=== PATIENT | female | born 1925 | race Caucasian/White ===

== ENCOUNTER 2016-04-28 19:07 | Inpatient (IN) | payer MEDICARE, OTHER ==
[~2016-04-28] VITALS: Ht 154.9 cm; Wt 54.4 kg
[2016-04-28 19:11] VITALS: BP 126/71
--- NOTE | 2016-04-28 19:53 | History & Physical ---
History and Physical History & Physicial Pt was seen and examined. full note will follow MARIEL PUGA Apr 28, 2016 19:53
[2016-04-28 20:19] LABS: BASOPHILS % (AUTO) 0.8 % (0.0-2.0); EOSINOPHILS % (AUTO) 0.3 % (0.0-3.0); LYMPHOCYTES % (AUTO) 8.7 % (20.0-45.0); MEAN CORPUSCULAR HGB CONC 32.1 G/DL (32.0-36.0); MEAN CORPUSCULAR VOLUME 100 FL (80-99); MEAN PLATELET VOLUME 5.1 FL (6.5-10.1); MONOCYTES % (AUTO) 8.7 % (1.0-10.0); NEUTROPHILS % (AUTO) 81.5 % (45.0-75.0); PLATELET COUNT 324 K/UL (150-450); RED BLOOD COUNT 3.57 M/UL (4.20-5.40); WHITE BLOOD COUNT 17.2 K/UL (4.8-10.8)
[2016-04-28 20:34] LABS: TROPONIN I < 0.30 ng/mL (<=0.30)
[2016-04-28 20:39] LABS: ALANINE AMINOTRANSFERASE 14 U/L (3-33); ALBUMIN/GLOBULIN RATIO 0.8 (1.0-2.7); ANION GAP 16 (5-15); ASPARTATE AMINO TRANSFERASE 50 U/L (5-40); CARBON DIOXIDE 23 mEQ/L (20-30); CHLORIDE 104 mEQ/L (98-107); CREATININE 1.2 mg/dL (0.5-0.9); HEMOLYSIS 226; POTASSIUM 5.7 mEQ/L (3.4-4.9); SODIUM 143 mEQ/L (135-145); TOTAL PROTEIN 5.6 g/dL (6.6-8.7)
[2016-04-28 20:46] LABS: CKMB 6.2 ng/mL (< 3.8)
[2016-04-28 20:51] VITALS: BP 151/62
[2016-04-28 21:14] LABS: APPEARANCE,URINE CLOUDY; KETONES,URINE NEGATIVE (NEGATIVE); LEUKOCYTE ESTERASE ,URINE 3+ (NEGATIVE); NITRITE,URINE POSITIVE (NEGATIVE); PH,URINE 8 (4.5-8.0); PROTEIN,URINE 3+ (NEGATIVE); UROBILINOGEN,URINE 1 MG/DL (0.0-1.0)
[2016-04-28] MEDS ORDERED: Sodium Polystyrene Sulfonate 15gm Powder ORAL ONE (21:15)
[2016-04-28] MEDS ORDERED: cefTRIAXone 1 GM in NS 55 ML IVPB ONE (21:30)
[2016-04-28 21:33] LABS: BACTERIA,URINE MANY /HPF; WBC,URINE TNTC /HPF (0 - 2)
--- NOTE | 2016-04-28 21:52 | Emergency Room Report ---
History of Present Illness General Chief Complaint: Chest Pain Source: Medical Record, EMS Present Illness HPI 89-year-old female presents to ED for evaluation. Per EMS patient has been tachycardic at her convalescent home today. Patient has history of A. fib. Patient denies any fevers or chills. Denies chest pain or shortness of breath. No aggravating relieving factors. Denies any other associated symptoms Allergies: Coded Allergies: No Known Allergies (Verified , 01/04/08) Patient History Past Medical History: HTN Past Surgical History: none Pertinent Family History: none Social History: Denies: alcohol use, drug use, smoking Now: No Immunizations: UTD Reviewed Nursing Documentation: PMH: Agreed, PSxH: Agreed Nursing Documentation-PMH Hx Hypertension: Yes Review of Systems All Other Systems: negative except mentioned in HPI Physical Exam Vital Signs Date Time Temp Pulse Resp B/P Pulse Ox O2 Delivery O2 Flow Rate FiO2 04/28/16 19:04 97.0 75 18 126/71 96 Room Air Sp02 EP Interpretation: reviewed, normal General Appearance: GCS 15, non-toxic, lethargic, thin Head: normocephalic, atraumatic Eyes: bilateral eye PERRL, bilateral eye normal inspection ENT: hearing grossly normal, normal pharynx, no angioedema, normal voice Neck: full range of motion, supple/symm/no masses Respiratory: chest non-tender, lungs clear, normal breath sounds, speaking full sentences Cardiovascular #1: no edema, tachycardia Cardiovascular #2: 2+ carotid (R), 2+ carotid (L), 2+ radial (R), 2+ radial (L) , 2+ dorsalis pedis (R), 2+ dorsalis pedis (L) Gastrointestinal: normal bowel sounds, non tender, soft, non-distended, no guarding, no rebound Rectal: deferred Genitourinary: normal inspection, no CVA tenderness Musculoskeletal: back normal, gait/station normal, normal range of motion, non- tender Neurologic: alert, oriented x3, responsive, motor strength/tone normal, sensory intact, speech normal Psychiatric: judgement/insight normal, memory normal, mood/affect normal, no suicidal/homicidal ideation Reflexes: 3+ bicep (R), 3+ bicep (L), 3+ tricep (R), 3+ tricep (L), 3+ knee (R) , 3+ knee (L) Skin: normal color, no rash, warm/dry, well hydrated Lymphatic: no adenopathy Medical Decision Making Diagnostic Impression: Primary Impression: CHF exacerbation Qualified Codes: I50.9 - Heart failure, unspecified Additional Impressions: Atrial fibrillation Qualified Codes: I48.91 - Unspecified atrial fibrillation UTI (urinary tract infection) Qualified Codes: N39.0 - Urinary tract infection, site not specified ARF (acute renal failure) Qualified Codes: N17.9 - Acute kidney failure, unspecified Hyperkalemia, diminished renal excretion ER Course Hospital Course 89-year-old female presents to ED with runs of atrial fibrillation, not controlled at convalescent home Differential diagnoses include: DC/unstable angina, contusion, muscle strain, PTX, rib fracture Clinical course Patient placed on stretcher. on teletypesetter monitor. After initial history and physical I ordered labs, EKG, chest x-ray, IVFs labs reviewed- noted leukocytosis, hemoglobin/hematocrit stable, creatinine elevated, K 5.2, troponins negative, BNP greater than 9000, UA + bacteria EKG - no ischemic changes Chest x-ray- cardiomegaly kayexalate given. Antibiotics given. Case discussed with Dr. Abel and he agreed to accept the patient to his service for further care and support I. I feel this is a highly complex case requiring extensive working including EKG/Rhythm strip, Xray/CT/US, Blood/urine lab work, repeat exams while in ED, and administration of strong opiates/narcotics for pain control, admission to hospital or close patient follow up. Diagnosis - CHF exacerbation, renal failuere, atria lfibrillation, ARF, hyperkalemia admitted to telemetry in serious condition Labs Test 04/28/16 19:36 04/28/16 20:48 White Blood Count 17.2 K/UL (4.8-10.8) Red Blood Count 3.57 M/UL (4.20-5.40) Hemoglobin 11.4 G/DL (12.0-16.0) Hematocrit 35.6 % (37.0-47.0) Mean Corpuscular Volume 100 FL (80-99) Mean Corpuscular Hemoglobin 32.0 PG (27.0-31.0) Mean Corpuscular Hemoglobin Concent 32.1 G/DL (32.0-36.0) Red Cell Distribution Width 13.0 % (11.6-14.8) Platelet Count 324 K/UL (150-450) Mean Platelet Volume 5.1 FL (6.5-10.1) Neutrophils (%) (Auto) 81.5 % (45.0-75.0) Lymphocytes (%) (Auto) 8.7 % (20.0-45.0) Monocytes (%) (Auto) 8.7 % (1.0-10.0) Eosinophils (%) (Auto) 0.3 % (0.0-3.0) Basophils (%) (Auto) 0.8 % (0.0-2.0) Sodium Level 143 mEQ/L (135-145) Potassium Level 5.7 mEQ/L (3.4-4.9) Chloride Level 104 mEQ/L (98-107) Carbon Dioxide Level 23 mEQ/L (20-30) Anion Gap 16 (5-15) Blood Urea Nitrogen 40 mg/dL (7-23) Creatinine 1.2 mg/dL (0.5-0.9) Estimat Glomerular Filtration Rate mL/min (>60) Glucose Level 115 mg/dL (74-106) Lactic Acid Level 1.40 mmol/L (0.66-2.22) Calcium Level 8.0 mg/dL (8.6-10.2) Total Bilirubin 0.2 mg/dL (0.0-1.2) Aspartate Amino Transf (AST/SGOT) 50 U/L (5-40) Alanine Aminotransferase (ALT/SGPT) 14 U/L (3-33) Alkaline Phosphatase 76 U/L (35-104) Total Creatine Kinase 65 U/L (26-140) Creatine Kinase MB 6.2 ng/mL (< 3.8) Creatine Kinase MB Relative Index 9.5 Troponin I < 0.30 ng/mL (<=0.30) Pro-B-Type Natriuretic Peptide 9162 pg/mL (0-450) Total Protein 5.6 g/dL (6.6-8.7) Albumin 2.5 g/dL (3.5-5.2) Globulin 3.1 g/dL Albumin/Globulin Ratio 0.8 (1.0-2.7) Urine Color Yellow Urine Appearance Cloudy Urine pH 8 (4.5-8.0) Urine Specific [place] 1.010 (1.005-1.035) Urine Protein 3+ (NEGATIVE) Urine Glucose (UA) Negative (NEGATIVE) Urine Ketones Negative (NEGATIVE) Urine Occult Blood 3+ (NEGATIVE) Urine Nitrite Positive (NEGATIVE) Urine Bilirubin Negative (NEGATIVE) Urine Urobilinogen 1 MG/DL (0.0-1.0) Urine Leukocyte Esterase 3+ (NEGATIVE) Urine RBC 2-4 /HPF (0 - 2) Urine WBC Tntc /HPF (0 - 2) Urine Squamous Epithelial Cells None /LPF (NONE/OCC) Urine Bacteria Many /HPF (NONE) EKG Diagnostic Results Rate: normal Rhythm: NSR ST Segments: no acute changes ASA given to the pt in ED: No Rhythm Strip Diag. Results EP Interpretation: yes Rhythm: NSR, no PVC's, no ectopy Chest X-Ray Diagnostic Results EP Interpretation: Yes Findings: no consolidation, no effusion, no pneumothorax, no acute cardiopulmonary disease, other - cardiomegaly Number of Views: 1 Last Vital Signs Date Time Temp Pulse Resp B/P Pulse Ox O2 Delivery O2 Flow Rate FiO2 04/28/16 20:51 100.0 82 18 151/62 96 Room Air Status: improved Disposition: ADMITTED INPATIENT Condition: Serious Referrals: PÉREZ ZAVALA (PCP) KAY WALKER M.D. Apr 28, 2016 21:52
[2016-04-28 22:14] VITALS: BP 142/72
[2016-04-28] MEDS ORDERED: FOLIC ACID1 MG ORAL (23:36)
[2016-04-28] MEDS ORDERED: ATORVASTATIN CA20 MG ORAL (23:36)
[2016-04-28] MEDS ORDERED: AMIODARONE HCL400 M1 ORAL (23:36)
[2016-04-28] MEDS ORDERED: HYDRALAZINE HCL10 MG ORAL (23:36)
[2016-04-28] MEDS ORDERED: MELATONIN1 M1 SL (23:36)
[2016-04-28] MEDS ORDERED: ARICEPT10 MG ORAL (23:36)
[2016-04-28] MEDS ORDERED: DEPAKOTE250 MG PO (23:36)
[2016-04-28] MEDS ORDERED: CALCIUM500 M3 PO (23:36)
[2016-04-28] MEDS ORDERED: BISACODYL5 MG ORAL (23:36)
[2016-04-28] MEDS ORDERED: ATIVAN0.5 MG ORAL (23:36)
[2016-04-28] MEDS ORDERED: INDERAL LA60 MG ORAL (23:36)
[2016-04-28] MEDS ORDERED: PRIMIDONE50 MG PO (23:36)
[2016-04-29] VITALS (7 sets, daily range): BP systolic 96–134; BP diastolic 54–80
[2016-04-29] MEDS ORDERED: Milk of Magnesia 30ml Ud ORAL PRN (00:45)
[2016-04-29] MEDS ORDERED: LORazepam 0.5mg tab ORAL PRN (00:45)
[2016-04-29] MEDS ORDERED: DEPAKOTE125 MG PO (01:27)
[2016-04-29] MEDS ORDERED: COLACE100 MG ORAL (01:27)
[2016-04-29] MEDS ORDERED: MELATONIN1 MG PO (01:27)
[2016-04-29] MEDS ORDERED: AMIODARONE HCL100 MG ORAL (01:44)
[2016-04-29] MEDS ORDERED: PROPRANOLOL HCL10 MG ORAL (01:47)
[2016-04-29] MEDS ORDERED: HYDRALAZINE HCL25 M1 ORAL (01:47)
[2016-04-29] MEDS ORDERED: DIOVAN160 MG ORAL (01:50)
[2016-04-29] MEDS ORDERED: PRIMIDONE50 MG PO (01:50)
[2016-04-29] MEDS ORDERED: ATIVAN0.5 MG ORAL (01:50)
[2016-04-29] MEDS ORDERED: FLEET ENEMA133 M1 RC (01:54)
[2016-04-29] MEDS ORDERED: NITROSTAT0.4 M2 SL (01:54)
[2016-04-29] MEDS ORDERED: DULCOLAX10 MG RC (01:54)
[2016-04-29] MEDS: HydrALAZINE 25mg tab ORAL SCH ×3 (06:00→22:00)
[2016-04-29 08:19] LABS: TROPONIN I < 0.30 ng/mL (<=0.30)
[2016-04-29 08:31] LABS: ANION GAP 13 (5-15); CARBON DIOXIDE 24 mEQ/L (20-30); CHLORIDE 107 mEQ/L (98-107); CHOLESTEROL 95 mg/dL (< 200); CHOLESTEROL/HDL RATIO 2.3 (3.3-4.4); HEMOLYSIS 6; LDL CHOLESTEROL (CALC.) 43 mg/dL (60-99); POTASSIUM 4.4 mEQ/L (3.4-4.9); SODIUM 144 mEQ/L (135-145)
--- NOTE | 2016-04-29 09:57 | Wound Care Consultation ---
Wound Assessment Wound Assessment #1: Wound Number: #1 Wound Present on Admission: Yes New Wound: No Status Change of Wound: No Wound Location Body Site Modif: mid Wound Location Body Site: sacral Wound Type: pressure ulcer Mary Test: Does not Mary Pressure Ulcer Stage: IV/unstageable Wound Thickness: Full Thickness Wound Length: 2.5 Wound Width: 1.5 Wound Depth: utd Percent of Wound Holt/Red: 30 Percent of Wound Bed Yellow/Wh: 70 Wound Drainage Description: Serosanguineous Wound Drainage Amount: Scant Wound Drainage Odor: None/Absent Tissue Surrounding Wound: Macerated Wound General Appearance: Reddened, Necrotic - 70 % yellow slough present. Wound Assessment #2: Wound Number: #2 Wound Present on Admission: Yes New Wound: No Status Change of Wound: No Wound Location Body Site Modif: left, right, lower Wound Location Body Site: leg Wound Type: other - scattered ecchymosis. Mary Test: Does not Mary Percent of Wound Holt/Red: 50 Percent of Wound Purple/Maroon: 50 Wound Drainage Amount: None Wound Drainage Odor: None/Absent Tissue Surrounding Wound: Intact Wound General Appearance: Open to air Wound Comment #1 Sacral pressure ulcer stage IV/Unstageable. #2 Left and right lower extremities scattered ecchymosis. Recommendation -Apply low air loss overlay mattress for wound and skin management. -Local wound care as ordered. -Turn and reposition. -Offload affected sacral site. -Offload both heels. -Apply heel protectors. -Avoid shear and friction. -Optimize nutrition. -Keep clean and dry. -Assess and follow up with MD for any changes of condition. SUKI PEGUERO Apr 29, 2016 09:57
[2016-04-29] MEDS: Irbesartan 150mg tablet ORAL SCH ×2 (10:03→21:00)
[2016-04-29] MEDS: Amiodarone 200mg tab ORAL SCH (10:03)
[2016-04-29] MEDS: Docusate 100mg cap ORAL SCH ×2 (10:03→18:00)
[2016-04-29] MEDS: Propranolol 10mg tab ORAL SCH ×2 (10:04→21:00)
[2016-04-29] MEDS: Calcium Carbonate 500mg w/Vit D 200iu tab PO SCH (10:04)
--- NOTE | 2016-04-29 10:53 | General Progress Note ---
Assessment/Plan Problem List: (1) ARF (acute renal failure) ICD Codes: N17.9 - Acute kidney failure, unspecified SNOMED: 55005088 Qualifiers: Qualified Codes: N17.9 - Acute kidney failure, unspecified (2) Hyperkalemia, diminished renal excretion ICD Codes: E87.5 - Hyperkalemia SNOMED: 41746089 (3) UTI (urinary tract infection) ICD Codes: N39.0 - Urinary tract infection, site not specified SNOMED: 30786772 Qualifiers: Qualified Codes: N39.0 - Urinary tract infection, site not specified (4) Toxic metabolic encephalopathy ICD Codes: G92 - Toxic encephalopathy SNOMED: 519716826 (5) HTN (hypertension) ICD Codes: I10 - Essential (primary) hypertension SNOMED: 90248315 Assessment/Plan IVF IV ABXS Discussed with speech NPO for now follow labs Discussed with RN Subjective Allergies: Coded Allergies: No Known Allergies (Verified , 01/04/08) Subjective lethargic Objective Last 24 Hour Vital Signs Date Time Temp Pulse Resp B/P Pulse Ox O2 Delivery O2 Flow Rate FiO2 04/29/16 10:04 85 102/61 04/29/16 10:03 102/61 04/29/16 08:23 97.3 85 20 102/61 97 Room Air 04/29/16 06:00 105/60 04/29/16 04:20 110/75 04/29/16 04:05 98.1 79 18 96/54 93 Room Air 04/29/16 04:00 87 04/29/16 00:00 83 04/29/16 00:00 99.0 83 18 130/80 98 Room Air 04/28/16 22:45 99.5 78 18 142/72 98 Room Air 04/28/16 22:14 99.5 78 18 142/72 98 Room Air 04/28/16 20:51 100.0 82 18 151/62 96 Room Air 04/28/16 19:11 100.2 140 18 126/71 96 Room Air 04/28/16 19:11 75 18 Room Air 04/28/16 19:04 97.0 75 18 126/71 96 Room Air Intake and Output 04/28/16 04/29/16 19:00 07:00 Intake Total 1055 ml Output Total 800 ml Balance 255 ml Intake IV Total 1055 ml Output Urine Total 800 ml Laboratory Tests 04/28/16 19:36: White Blood Count 17.2H, Red Blood Count 3.57L, Hemoglobin 11.4L, Hematocrit 35.6L, Mean Corpuscular Volume 100H, Mean Corpuscular Hemoglobin 32.0H, Mean Corpuscular Hemoglobin Concent 32.1, Red Cell Distribution Width 13.0, Platelet Count 324, Mean Platelet Volume 5.1L, Neutrophils (%) (Auto) 81.5H, Lymphocytes (%) (Auto) 8.7L, Monocytes (%) (Auto) 8.7, Eosinophils (%) (Auto) 0.3, Basophils (%) (Auto) 0.8, Sodium Level 143, Potassium Level 5.7H, Chloride Level 104, Carbon Dioxide Level 23, Anion Gap 16H, Blood Urea Nitrogen 40H, Creatinine 1.2H, Estimat Glomerular Filtration Rate , Glucose Level 115H, Lactic Acid Level 1.40, Calcium Level 8.0L, Total Bilirubin 0.2, Aspartate Amino Transf (AST/SGOT) 50H, Alanine Aminotransferase (ALT/SGPT) 14, Alkaline Phosphatase 76, Total Creatine Kinase 65, Creatine Kinase MB 6.2H, Creatine Kinase MB Relative Index 9.5, Troponin I < 0.30, Pro-B-Type Natriuretic Peptide 9162H, Total Protein 5.6L, Albumin 2.5L, Globulin 3.1, Albumin/Globulin Ratio 0.8L 04/28/16 20:48: Urine Color Yellow, Urine Appearance Cloudy, Urine pH 8, Urine Specific [place] 1.010, Urine Protein 3+H, Urine Glucose (UA) Negative, Urine Ketones Negative, Urine Occult Blood 3+H, Urine Nitrite PositiveH, Urine Bilirubin Negative, Urine Urobilinogen 1H, Urine Leukocyte Esterase 3+H, Urine RBC 2-4H, Urine WBC TntcH, Urine Squamous Epithelial Cells None, Urine Bacteria ManyH 04/29/16 07:25: Sodium Level 144, Potassium Level 4.4, Chloride Level 107, Carbon Dioxide Level 24, Anion Gap 13, Blood Urea Nitrogen 37H, Creatinine 1.0H, Estimat Glomerular Filtration Rate , Glucose Level 93, Calcium Level 8.0L, Troponin I < 0.30, Triglycerides Level 52, Cholesterol Level 95, LDL Cholesterol 43L, HDL Cholesterol 42, Cholesterol/HDL Ratio 2.3L Height (Feet): 5 Height (Inches): 1.00 Weight (Pounds): 120 Cardiovascular: normal rate Respiratory/Chest: lungs clear Edema: no edema noted Generalized MARIEL PUGA Apr 29, 2016 10:53
[2016-04-29] MEDS ORDERED: Pneumococcal Vaccine 25mcg/0.5ml IM ONE (11:30)
[2016-04-29] MEDS: Potassium Chloride 10 MEQ in D5 1/2NS 1,000 ML IV SCH (11:54)
--- NOTE | 2016-04-29 12:55 | Diagnostic Imaging Report ---
Indications: Chest pain Technique: Portable AP chest Findings: Comparison: None Lungs normally, symmetrically inflated. Small calcified nodules left upper lobe, left hilum. Right lung clear. Heart size, pulmonary vasculature within normal limits. Vascular calcified and elongated. No pleural abnormalities. Bones diffusely demineralized. Small caliber catheter overlies soft tissues of right arm. IMPRESSION: No evidence of acute cardiopulmonary disease Calcified old granulomatous disease Aortosclerosis and probable chronic hypertensive change Osteopenia Nonspecific right arm catheter, may be intravenous
--- NOTE | 2016-04-29 15:18 | History and Physical Report ---
DATE OF ADMISSION: 04/28/2016 CHIEF COMPLAINT: The patient was thought to have new onset atrial fibrillation and chest pain. HISTORY OF PRESENT ILLNESS: This is a 89-year-old [place] female with a history of dementia, who is nonverbal at baseline. She was found to be somewhat tachycardic, but suspicious of atrial fibrillation and apparently there was also some chest pain. The patient was sent to the emergency room. She was found to have elevated WBC at 17,200 and urinalysis positive for urinary tract infection. Also hyperkalemia with potassium 5.7, renal failure with a BUN of 40 and creatinine 1.2, and for all those reasons, the patient was admitted. PAST MEDICAL HISTORY: The patient has history of Parkinson disease, history of hypertension and history of dementia. MEDICATIONS: Reviewed in the MR. ALLERGIES: No known drug allergies. SOCIAL HISTORY: No history of smoking or alcohol abuse. The patient is at [facility]. REVIEW OF SYSTEMS: Unobtainable. PHYSICAL EXAMINATION: GENERAL: The patient is an elderly female. She opens her eyes when she called, but she does not talk. She has some tremors. VITAL SIGNS: Blood pressure 102/61, pulse 85, temperature 97.3 degrees, and respiratory rate is 20. HEENT: [place] conjunctivae. Anicteric sclerae. NECK: Supple. LUNGS: Clear to auscultation. HEART: S1 and S2 without murmurs or rubs. ABDOMEN: Soft and nontender. EXTREMITIES: No cyanosis or edema. LABORATORY AND DIAGNOSTIC DATA: The chemistry panel shows serum sodium of 143, potassium 5.7, chloride 104, CO2 23, BUN is 14, creatinine 1.2, and blood sugar is 115. Calcium is 8. CBC shows a WBC of 17,200, hematocrit 35.6, hemoglobin 11.4, and platelets 324,000. ASSESSMENT: This is an 89-year-old female was admitted with possibility of atrial fibrillation, looking at the EKG, it looks that there is lot of artifact from removing, but I did not believe the patient has atrial fibrillation. She does have significant leukocytosis and urinary tract infection. Also she has some change in mental status, which is new and she is not as responsive as before. Her renal failure is almost certainly as a result of prerenal azotemia with high BUN to creatinine ratio. PLAN: The patient will be on IV antibiotics. I will start the patient on IV fluids. Urine culture will be obtained. The patient will be seen by a speech pathologist for swallowing evaluation. Laboratories will be followed and further med adjustment will be made in the patient's regimen. Azam Abel M.D. DR: MARYANNE JOB#: [id number] CC:
--- NOTE | 2016-04-29 16:57 | Consultation ---
DATE OF CONSULTATION: 04/29/2016 INFECTIOUS DISEASE CONSULTATION PRIMARY ATTENDING PHYSICIAN: Azam Abel M.D. REASON FOR CONSULTATION: Sepsis, UTI. HISTORY OF PRESENT ILLNESS: The patient is an 89-year-old female admitted on 04/28/2016 from a nursing facility. The patient was tachycardic. She has a history of atrial fibrillation. At the time of admission, she had low-grade fever with temperature of 100.2 degrees, has tachycardia with heart rate of 140. She is not a source of history. She also was found to have leukocytosis and many WBC in the urine. She was hyperkalemic, which shows sign of renal failure. PAST MEDICAL HISTORY: Significant for Parkinson, chronic kidney disease, hypertension, and atrial fibrillation. MEDICATIONS: Atorvastatin, primidone, Aricept, ceftriaxone, Depakote, Colace, amiodarone, propranolol, Avapro, folic acid, calcium with vitamin D, hydralazine, lorazepam, and bisacodyl. ALLERGIES: No known drug allergy. SOCIAL HISTORY: [facility] resident with poor mental and functional status. VACCINATION HISTORY: [facility] is not sure the patient had pneumonia vaccination. No other history is obtainable by the patient. PHYSICAL EXAMINATION: GENERAL APPEARANCE: No acute distress. VITAL SIGNS: Temperature 97.3 degrees, pulse 85, and blood pressure 102/65. HEAD AND NECK: [place] conjunctiva. HEART: Tachycardic and irregular. LUNGS: Clear. ABDOMEN: Soft. EXTREMITIES: Extremity has no edema. The patient has right arm midline that was present at the time of admission. SKIN: Skin has stage IV sacral pressure ulcer. NEUROLOGIC: Noncommunicative and mumbling. LABORATORY AND DIAGNOSTIC DATA: Urinalysis showed WBC too numerous to count, leukocyte is trace 2+, nitrate positive. WBC 17.2, hemoglobin 11.4, hematocrit 35.6 and platelet is 324,000. Sodium 144, potassium 4.4 coming down from 5.7, BUN 7 and creatinine 1. BNP level is 9162. Albumin is 2.5. Cultures are pending. IMPRESSION: 1. Sepsis with tachycardia. 2. Leukocytosis. 3. Low-grade fever. 4. The patient had pyuria, likely urinary tract infection. 5. Hyperkalemia and acute kidney injury. 6. Parkinson and dementia. 7. Hypotension. 8. Atrial fibrillation. 9. Sacral pressure ulcer. RECOMMENDATION: We will continue with ceftriaxone. We will follow up the cultures. We have asked for pneumonia vaccination. I thank, Dr. Azam Aebl, for involving me in the care of this patient. Will Abel M.D. DR: QUYEN JOB#: [id number] CC:
[2016-04-29] MEDS: cefTRIAXone 1 GM in D5W 55 ML IVPB SCH (20:55)
[2016-04-29] MEDS: Atorvastatin 20mg tab ORAL SCH (21:00)
[2016-04-29] MEDS: Donepezil 10mg tab ORAL SCH (21:00)
[2016-04-30 00:25] VITALS: BP 122/92
[2016-04-30] MEDS: Potassium Chloride 10 MEQ in D5 1/2NS 1,000 ML IV SCH ×2 (01:12→13:58)
[2016-04-30 04:20] VITALS: BP 109/56
[2016-04-30] MEDS: HydrALAZINE 25mg tab ORAL SCH ×3 (06:00→22:00)
[2016-04-30] MEDS: Calcium Carbonate 500mg w/Vit D 200iu tab PO SCH (06:30)
[2016-04-30 07:13] LABS: BASOPHILS % (AUTO) 0.7 % (0.0-2.0); EOSINOPHILS % (AUTO) 0.8 % (0.0-3.0); LYMPHOCYTES % (AUTO) 12.1 % (20.0-45.0); MEAN CORPUSCULAR HEMOGLOBIN 32.6 PG (27.0-31.0); MEAN CORPUSCULAR HGB CONC 32.6 G/DL (32.0-36.0); MEAN CORPUSCULAR VOLUME 100 FL (80-99); MEAN PLATELET VOLUME 5.9 FL (6.5-10.1); MONOCYTES % (AUTO) 11.4 % (1.0-10.0); NEUTROPHILS % (AUTO) 74.9 % (45.0-75.0); PLATELET COUNT 264 K/UL (150-450); RED BLOOD COUNT 3.38 M/UL (4.20-5.40); RED CELL DISTRIBUTION WIDTH 13.9 % (11.6-14.8); WHITE BLOOD COUNT 10.9 K/UL (4.8-10.8)
[2016-04-30 07:18] LABS: ANION GAP 11 (5-15); CALCIUM 8.3 mg/dL (8.6-10.2); CARBON DIOXIDE 25 mEQ/L (20-30); CHLORIDE 110 mEQ/L (98-107); CREATININE 1.1 mg/dL (0.5-0.9); HEMOLYSIS 2; POTASSIUM 4.5 mEQ/L (3.4-4.9); SODIUM 146 mEQ/L (135-145)
[2016-04-30 07:20] LABS: MAGNESIUM 1.9 mg/dL (1.7-2.5)
[2016-04-30 08:34] VITALS: BP 97/65
[2016-04-30] MEDS: Docusate 100mg cap ORAL SCH ×2 (09:00→18:00)
[2016-04-30] MEDS: Irbesartan 150mg tablet ORAL SCH ×2 (09:00→21:00)
[2016-04-30] MEDS: Propranolol 10mg tab ORAL SCH ×2 (09:00→21:00)
[2016-04-30] MEDS: Amiodarone 200mg tab ORAL SCH (09:00)
--- NOTE | 2016-04-30 11:32 | Infectious Diseases Prog Note ---
Assessment/Plan Assessment/Plan antibiotics : ceftriaxone A 1. gram negative UTI 2. leucocytosis improving 3. Parkinsons disease 4. dementia P 1. continue ceftriaxone 2. will follow up cultures Subjective ROS Limited/Unobtainable: Yes Allergies: Coded Allergies: No Known Allergies (Verified , 01/04/08) Objective Vital Signs Last 24 Hour Vital Signs Date Time Temp Pulse Resp B/P Pulse Ox O2 Delivery O2 Flow Rate FiO2 04/30/16 08:34 97.5 121 20 97/65 97 Room Air 04/30/16 08:00 122 04/30/16 06:00 109/56 04/30/16 04:20 98.0 80 20 109/56 94 Room Air 04/30/16 04:00 122 04/30/16 00:25 97.0 65 20 122/92 94 Room Air 04/30/16 00:00 114 04/29/16 22:00 106/66 04/29/16 21:00 106/66 04/29/16 21:00 136 106/66 04/29/16 20:00 136 04/29/16 20:00 97.7 96 20 106/66 93 Room Air 04/29/16 16:00 97.9 62 18 134/59 90 Room Air 04/29/16 16:00 115 04/29/16 14:00 99/61 04/29/16 12:48 98.2 86 20 99/61 96 Room Air 04/29/16 11:55 118 Height (Feet): 5 Height (Inches): 1.00 Weight (Pounds): 120 Respiratory/Chest: lungs clear Cardiovascular: normal rate, regular rhythm, no gallop/murmur Abdomen: soft, non tender Extremities: no edema, other - right arm PICC Microbiology Date/Time Source Procedure Growth Status 04/28/16 19:26 Blood Blood Culture - Preliminary NO GROWTH AFTER 24 HOURS Resulted 04/28/16 18:59 Blood Blood Culture - Preliminary NO GROWTH AFTER 24 HOURS Resulted 04/28/16 20:48 Urine,Clean Catch Urine Culture - Preliminary Gram Negative Bacillus 1 Resulted Laboratory Tests Test 04/30/16 06:30 White Blood Count 10.9 K/UL (4.8-10.8) H Red Blood Count 3.38 M/UL (4.20-5.40) L Hemoglobin 11.0 G/DL (12.0-16.0) L Hematocrit 33.7 % (37.0-47.0) L Mean Corpuscular Volume 100 FL (80-99) H Mean Corpuscular Hemoglobin 32.6 PG (27.0-31.0) H Mean Corpuscular Hemoglobin Concent 32.6 G/DL (32.0-36.0) Red Cell Distribution Width 13.9 % (11.6-14.8) Platelet Count 264 K/UL (150-450) Mean Platelet Volume 5.9 FL (6.5-10.1) L Neutrophils (%) (Auto) 74.9 % (45.0-75.0) Lymphocytes (%) (Auto) 12.1 % (20.0-45.0) L Monocytes (%) (Auto) 11.4 % (1.0-10.0) H Eosinophils (%) (Auto) 0.8 % (0.0-3.0) Basophils (%) (Auto) 0.7 % (0.0-2.0) Sodium Level 146 mEQ/L (135-145) H Potassium Level 4.5 mEQ/L (3.4-4.9) Chloride Level 110 mEQ/L (98-107) H Carbon Dioxide Level 25 mEQ/L (20-30) Anion Gap 11 (5-15) Blood Urea Nitrogen 38 mg/dL (7-23) H Creatinine 1.1 mg/dL (0.5-0.9) H Estimat Glomerular Filtration Rate mL/min (>60) Glucose Level 143 mg/dL (74-106) H Hemoglobin A1c 5.0 % (< 6.0) Calcium Level 8.3 mg/dL (8.6-10.2) L Phosphorus Level 4.0 mg/dL (2.5-4.8) Magnesium Level 1.9 mg/dL (1.7-2.5) Iron Level 27 ug/dL (37-145) L Total Iron Binding Capacity 181 ug/dL (250-400) L Percent Iron Saturation 15 % (15-50) Unsaturated Iron Binding 154 ug/dL (112-346) CAROLE JAIN Apr 30, 2016 11:32
[2016-04-30 12:05] VITALS: BP 129/74
--- NOTE | 2016-04-30 14:22 | General Progress Note ---
Assessment/Plan Problem List: (1) ARF (acute renal failure) ICD Codes: N17.9 - Acute kidney failure, unspecified SNOMED: 94961366 Qualifiers: Qualified Codes: N17.9 - Acute kidney failure, unspecified (2) Hyperkalemia, diminished renal excretion ICD Codes: E87.5 - Hyperkalemia SNOMED: 82068305 (3) UTI (urinary tract infection) ICD Codes: N39.0 - Urinary tract infection, site not specified SNOMED: 31398028 Qualifiers: Qualified Codes: N39.0 - Urinary tract infection, site not specified (4) Toxic metabolic encephalopathy ICD Codes: G92 - Toxic encephalopathy SNOMED: 526124371 (5) HTN (hypertension) ICD Codes: I10 - Essential (primary) hypertension SNOMED: 58298698 (6) Hypernatremia ICD Codes: E87.0 - Hyperosmolality and hypernatremia SNOMED: 51817389 Assessment/Plan Change IVFto D5W IV ABXS Discussed with speech may need GT follow labs Discussed with RN Subjective Allergies: Coded Allergies: No Known Allergies (Verified , 01/04/08) Subjective awake with involuntary movements Objective Last 24 Hour Vital Signs Date Time Temp Pulse Resp B/P Pulse Ox O2 Delivery O2 Flow Rate FiO2 04/30/16 12:05 97.0 125 20 129/74 96 Room Air 04/30/16 12:00 122 04/30/16 08:34 97.5 121 20 97/65 97 Room Air 04/30/16 08:00 122 04/30/16 06:00 109/56 04/30/16 04:20 98.0 80 20 109/56 94 Room Air 04/30/16 04:00 122 04/30/16 00:25 97.0 65 20 122/92 94 Room Air 04/30/16 00:00 114 04/29/16 22:00 106/66 04/29/16 21:00 106/66 04/29/16 21:00 136 106/66 04/29/16 20:00 136 04/29/16 20:00 97.7 96 20 106/66 93 Room Air 04/29/16 16:00 97.9 62 18 134/59 90 Room Air 04/29/16 16:00 115 Intake and Output 04/29/16 04/30/16 19:00 07:00 Intake Total 150 ml 205 ml Output Total 250 ml 400 ml Balance -100 ml -195 ml Intake IV Total 150 ml 205 ml Output Urine Total 250 ml 400 ml Laboratory Tests 04/30/16 06:30: White Blood Count 10.9H, Red Blood Count 3.38L, Hemoglobin 11.0L, Hematocrit 33.7L, Mean Corpuscular Volume 100H, Mean Corpuscular Hemoglobin 32.6H, Mean Corpuscular Hemoglobin Concent 32.6, Red Cell Distribution Width 13.9, Platelet Count 264, Mean Platelet Volume 5.9L, Neutrophils (%) (Auto) 74.9, Lymphocytes ( %) (Auto) 12.1L, Monocytes (%) (Auto) 11.4H, Eosinophils (%) (Auto) 0.8, Basophils (%) (Auto) 0.7, Sodium Level 146H, Potassium Level 4.5, Chloride Level 110H, Carbon Dioxide Level 25, Anion Gap 11, Blood Urea Nitrogen 38H, Creatinine 1.1H, Estimat Glomerular Filtration Rate , Glucose Level 143H, Hemoglobin A1c 5.0, Calcium Level 8.3L, Phosphorus Level 4.0, Magnesium Level 1.9, Iron Level 27L, Total Iron Binding Capacity 181L, Percent Iron Saturation 15, Unsaturated Iron Binding 154 Height (Feet): 5 Height (Inches): 1.00 Weight (Pounds): 120 Cardiovascular: normal rate Respiratory/Chest: lungs clear Edema: no edema noted MARIEL Faith Apr 30, 2016 14:22
[2016-04-30] MEDS: Sinemet 25/100 tab ORAL STA ×2 (15:10→17:36)
--- NOTE | 2016-04-30 15:10 | Consultation ---
Consult Note Consult Note NEUROLOGY CONSULTATION: Full note dictated #[id number] 89 y/o, RH, CF with PH of MMP including essential and parkinsonian tremor, dementia and atrial fibrillation. She was found to be tachycardic and apparently complained of chest pain. She was sent to the emergency room where she was found to have an elevated WBC at 17,200 and urinalysis positive for urinary tract infection. She also had renal failure with a BUN of 40 and creatinine 1.2. ON EXAM: Awake and alert looking. Aphasic. Unable to follow simple commands in Vincentian. Generally weak. Globally diminished reflexes. 4-5 Hz tremor with rigidity, bradykinesia, hypomimia. IMPRESSION: Advanced primary degenerative dementia. Parkinsonian syndrome with no antiparkinsonian medicines on list. As per nurse severe dysphagia on swallowing test. REC: Continue present management. Add Sinemet 25/100 q 8 AM and 1 PM after 1 dose now. Observe. Charely Schmidt M.D., M.S.P.CHARLEY PEREZ Apr 30, 2016 15:10
[2016-04-30 16:39] VITALS: BP 105/60
--- NOTE | 2016-04-30 16:49 | Consultation ---
Consult Note Assessment/Plan patient seen and examined chart reviewed presented in NSR Now in AF with RVR cannot tolerate POs Obtain ECG Obtain echo Dig IV for rate control [facility] planning depending on ability to take POs or not High fall risk for anticoagulation May consider amiodarone PO or IV if need be Ochoa Null MD Apr 30, 2016 16:49
[2016-04-30] MEDS ORDERED: Digoxin 0.5mg/2ml Inj IVP ONE (17:00)
[2016-04-30 20:15] VITALS: BP 140/81
[2016-04-30] MEDS: cefTRIAXone 1 GM in D5W 55 ML IVPB SCH (20:30)
[2016-04-30] MEDS: Donepezil 10mg tab ORAL SCH (21:00)
[2016-04-30] MEDS: Atorvastatin 20mg tab ORAL SCH (21:00)
--- NOTE | 2016-04-30 21:47 | Consultation ---
DATE OF CONSULTATION: 04/30/2016 NEUROLOGY CONSULTATION REQUESTING PHYSICIAN: Azam Abel M.D. HISTORY: Ms. Nikki Merida is an 89-year-old, right-handed, lady, who does have a past history of multiple medical problems including hypertension, dementia, atrial fibrillation, tremor associated with Parkinson disease, tremor associated with essential tremor and significant cognitive and motor decline. She apparently lives in a retirement, where she was functioning relatively well until 04/29/2016 when she was brought into the [facility] emergency room for tachycardia and chest pain. When she was evaluated in the emergency room, WBC count was elevated to 17,200 and her urine analysis was positive for a urinary tract infection. She also had renal failure with a BUN of 40 and a creatinine of 1.2. She has since been admitted to the hospital and her infectious processes and fluid and electrolyte imbalances have been treated. She, however, has been having a significant tremor and as a result of that this consultation was requested. The patient herself was mute and could not give me any history and thus no further information could be obtained. PAST MEDICAL HISTORY: Significant for dementia, atrial fibrillation, essential tremor, Parkinsonian tremor, and general debility, as a result of which she lives in a retirement. FAMILY HISTORY: Unavailable. PERSONAL HISTORY: Home: She lives in a retirement. Work: Unknown. Habits: At this point in time, there is no history of alcohol, tobacco or illicit drug use. MEDICATIONS: Present medications include atorvastatin, Mysoline 50 mg at bedtime, Aricept 10 mg daily, ceftriaxone, Depakote 250 mg three times a day, docusate sodium, amiodarone, Inderal 30 mg twice a day, Avapro, folic acid, Os-Addison, hydralazine, Ativan, Dulcolax and milk of magnesia. PHYSICAL EXAMINATION: GENERAL: She is a well-developed relatively well-nourished, but lean lady, lying in bed exhibiting a resting tremor involving her upper extremities and jaw. VITAL SIGNS: Pulse 125 per minute, blood pressure 129/74 mm Hg, respirations 20 per minute, and temperature 97 degrees Fahrenheit. HEAD: Normocephalic and atraumatic. EENT: Examination benign. NECK: No neck rigidity was observed. NEUROLOGICAL EXAMINATION: MENTAL STATUS EXAMINATION: She was awake and looked alert and bright. She was unable to follow simple commands even in Georgian. Further mental status testing was impossible. SPEECH: Could not be tested. LANGUAGE: She was unable to follow simple commands and unable to communicate in any way. CRANIAL NERVE EXAMINATION: II: She did blink to threat in all garrett. III, IV & : The external ocular movements were full and the pupils 3 mm in diameter equal, round, regular and reactive to light. V & VII: The corneal reflexes were present and equally brisk. VIII: She seemed to be able to hear and had no nystagmus. IX & X: The gag reflex was present and diminished. XI: The sternocleidomastoids and trapezii did function. XII: The tongue was in the midline without any fasciculations or atrophy. MOTOR SYSTEM: The tone was increased in all four extremities with a combination of rigidity and gegenhalten. Examination of muscle mass revealed mild generalized muscle wasting. 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 There was no definite weakness more marked on one side than on the other. SENSORY EXAMINATION: She responded appropriately to deep pain. Other sensory modalities could not be tested. REFLEXES: 1+ and bilaterally symmetrical at the biceps, triceps, brachioradialis, and knees. 0 at both ankles. The plantar responses were flexor bilaterally. COORDINATION, STANCE & GAIT: Could not be tested. DIAGNOSTIC IMPRESSION: 1. Ms. Nikki Merida is an 89-year-old, right-handed, lady, who does have a past history of multiple medical problems including hypertension, atrial fibrillation, an essential tremor, a Parkinsonian tremor and dementia, who was brought to the hospital for tachycardia and some chest pain. When she was evaluated in the hospital was found to have a leukocytosis, a urinary tract infection and renal failure. All these problems have been treated appropriately, but she has been exhibiting worsening tremor and thus this consultation was requested. 2. On neurological examination, at this time, she is awake and alert looking, but is aphasic and unable to follow simple commands to express herself. She is also generally weak and has globally diminished reflexes. She does have a 4-5 Hz tremor involving her upper extremities and jaw, which is more marked at rest than with effort. She also demonstrates rigidity, bradykinesia and hypomania. 3. The patient's history and neurological examination are most compatible with an advanced primary degenerative dementia. 4. She also exhibits signs of a significant parkinsonian syndrome, but her medication list contains no antiparkinsonian medicines. 5. As per the patient's nurse, she just had a swallowing study performed, which revealed significant dysphagia. RECOMMENDATIONS: 1. Agree with management thus far. 2. Would continue to treat the patient's infectious process and renal failure, as is being done at this point in time. 3. Would continue the present medications for essential tremor. 4. Would add Sinemet 25/100 mg q 8 a.m. and 1 p.m. after a dose now. 5. Would observe the patient closely and depending on how she fares over the next day or so, further recommendations will be given. Thank you for entrusting me with the care of Ms. Merida. I shall follow her with you. Saad Schmidt M.D., M.S.P.H. DR: MARCO JOB#: [id number] MINDY
--- NOTE | 2016-04-30 23:07 | Consultation ---
DATE OF CONSULTATION: 04/30/2016 CARDIOLOGY CONSULTATION CONSULTING PHYSICIAN: Ochoa Null M.D. ATTENDING PHYSICIAN: Azam Abel M.D. REFERRING PHYSICIAN: Azam Abel M.D. REASON FOR CONSULTATION: Atrial fibrillation. HISTORY OF PRESENT ILLNESS: The patient is an 89-year-old woman who apparently was sent to the emergency room because of chest pain and tachycardia. It is not clear whether she actually had atrial fibrillation at that time. However, upon admission she was in normal sinus rhythm. She was found to have elevated white count and urinary tract infection. History is limited to what is in the chart, as the patient has underlying Parkinson's dementia. Later on, she developed atrial fibrillation with rapid ventricular response. ALLERGIES: None. MEDICATIONS: I have reviewed the medication reconciliation form and medication administration record. PAST MEDICAL HISTORY: Parkinson disease with Parkinson's dementia and hypertension. SOCIAL HISTORY: She lives in [facility]. She does not smoke or drink alcohol. REVIEW OF SYSTEMS: Unobtainable due to the patient's condition. FAMILY HISTORY: Noncontributory. PHYSICAL EXAMINATION: VITAL SIGNS: She is afebrile. Pulse is 125, respirations 20, and blood pressure is 129/74. GENERAL: She is in no apparent distress. Making noises, but not speaking. HEENT: Normocephalic and atraumatic. NECK: Supple. LUNGS: Clear. CARDIAC: Irregularly irregular. No murmur, rubs, or gallops. ABDOMEN: Soft and nontender. EXTREMITIES: There is no cyanosis, clubbing, or edema. IMPRESSION AND RECOMMENDATION: 1. New-onset atrial fibrillation. 2. Urinary tract infection. DISCUSSION: She cannot take POs. She will need to be transferred to the intensive care unit for intravenous rate control. However, at this time her heart rate has slowed down by itself significantly, so we will give her intravenous fluids. If her electrolytes are okay, obtain an EKG and an echocardiogram. Long-term planning depends on the ability to take POs or whether she is going to have a G-tube. She is at a high fall risk and therefore no anticoagulation. Amiodarone may be an option for her. Thank you, Dr. Abel, for allowing me to participate in care of this patient. Please feel free to contact me with any questions or concerns. Ochoa Null M.D. DR: NYDIA JOB#: [id number] CC:
[2016-05-01 00:05] VITALS: BP 130/68
[2016-05-01 04:19] VITALS: BP 114/65
[2016-05-01] MEDS: HydrALAZINE 25mg tab ORAL SCH ×3 (05:16→21:36)
[2016-05-01] MEDS: Calcium Carbonate 500mg w/Vit D 200iu tab PO SCH (05:17)
[2016-05-01 08:00] VITALS: BP 114/91
[2016-05-01 08:31] LABS: ANION GAP 12 (5-15); CALCIUM 8.1 mg/dL (8.6-10.2); CARBON DIOXIDE 24 mEQ/L (20-30); CHLORIDE 105 mEQ/L (98-107); HEMOLYSIS 4; POTASSIUM 4.7 mEQ/L (3.4-4.9); SODIUM 141 mEQ/L (135-145)
[2016-05-01] MEDS: Sinemet 25/100 tab ORAL SCH ×2 (08:34→12:56)
[2016-05-01] MEDS: Propranolol 10mg tab ORAL SCH ×2 (09:00→21:00)
[2016-05-01] MEDS: Docusate 100mg cap ORAL SCH ×2 (09:00→17:37)
[2016-05-01] MEDS: Irbesartan 150mg tablet ORAL SCH ×2 (09:00→21:00)
[2016-05-01] MEDS: Amiodarone 200mg tab ORAL SCH (09:00)
[2016-05-01] MEDS: Digoxin 0.5mg/2ml Inj IVP SCH (10:14)
--- NOTE | 2016-05-01 11:11 | Infectious Diseases Prog Note ---
Assessment/Plan Assessment/Plan antibiotics : ceftriaxone A 1. proteus UTI 2. leucocytosis improving 3. Parkinsons disease 4. dementia 5. rectal VRE colonization P 1. continue ceftriaxone 3 more days 2. will follow up cultures Subjective ROS Limited/Unobtainable: Yes Allergies: Coded Allergies: No Known Allergies (Verified , 01/04/08) Objective Vital Signs Last 24 Hour Vital Signs Date Time Temp Pulse Resp B/P Pulse Ox O2 Delivery O2 Flow Rate FiO2 05/01/16 10:14 122 05/01/16 08:00 97.9 99 20 114/91 100 Room Air 05/01/16 08:00 106 05/01/16 04:19 97.5 121 20 114/65 95 Room Air 05/01/16 04:00 100 05/01/16 00:05 97.9 108 20 130/68 94 05/01/16 00:00 108 04/30/16 20:15 98.7 114 19 140/81 99 Room Air 04/30/16 20:00 107 04/30/16 17:00 120 04/30/16 16:39 97.9 114 20 105/60 97 Room Air 04/30/16 16:00 107 04/30/16 12:05 97.0 125 20 129/74 96 Room Air 04/30/16 12:00 122 Height (Feet): 5 Height (Inches): 1.00 Weight (Pounds): 120 Respiratory/Chest: lungs clear Cardiovascular: normal rate, regular rhythm, no gallop/murmur Abdomen: soft, non tender Extremities: no edema, other - right arm PICC Microbiology Date/Time Source Procedure Growth Status 04/28/16 19:26 Blood Blood Culture - Preliminary NO GROWTH AFTER 48 HOURS Resulted 04/28/16 18:59 Blood Blood Culture - Preliminary NO GROWTH AFTER 48 HOURS Resulted 04/28/16 22:50 Nasal Nares Left MRSA Culture - Final NO METHICILLIN RESISTANT STAPH AUREUS... Complete 04/28/16 20:48 Urine,Clean Catch Urine Culture - Final Proteus Mirabilis Complete 04/28/16 22:50 Rectum VRE Culture - Final Enterococcus Faecalis - Vre Complete Laboratory Tests Test 05/01/16 07:20 Sodium Level 141 mEQ/L (135-145) Potassium Level 4.7 mEQ/L (3.4-4.9) Chloride Level 105 mEQ/L (98-107) Carbon Dioxide Level 24 mEQ/L (20-30) Anion Gap 12 (5-15) Blood Urea Nitrogen 34 mg/dL (7-23) H Creatinine 1.0 mg/dL (0.5-0.9) H Estimat Glomerular Filtration Rate mL/min (>60) Glucose Level 122 mg/dL (74-106) H Calcium Level 8.1 mg/dL (8.6-10.2) L CAROLE JAIN May 01, 2016 11:11
[2016-05-01 12:00] VITALS: BP 123/56
--- NOTE | 2016-05-01 14:53 | General Progress Note ---
Assessment/Plan Problem List: (1) ARF (acute renal failure) ICD Codes: N17.9 - Acute kidney failure, unspecified SNOMED: 95581766 Qualifiers: Qualified Codes: N17.9 - Acute kidney failure, unspecified (2) Hyperkalemia, diminished renal excretion ICD Codes: E87.5 - Hyperkalemia SNOMED: 76907643 (3) UTI (urinary tract infection) ICD Codes: N39.0 - Urinary tract infection, site not specified SNOMED: 66948356 Qualifiers: Qualified Codes: N39.0 - Urinary tract infection, site not specified (4) Toxic metabolic encephalopathy ICD Codes: G92 - Toxic encephalopathy SNOMED: 818198795 (5) HTN (hypertension) ICD Codes: I10 - Essential (primary) hypertension SNOMED: 12780397 (6) Hypernatremia ICD Codes: E87.0 - Hyperosmolality and hypernatremia SNOMED: 72019068 Assessment/Plan IVF IV ABXS Discussed with son No Gt per son follow labs Discussed with RN Subjective Allergies: Coded Allergies: No Known Allergies (Verified , 01/04/08) Subjective awake with involuntary movements Objective Last 24 Hour Vital Signs Date Time Temp Pulse Resp B/P Pulse Ox O2 Delivery O2 Flow Rate FiO2 05/01/16 12:00 98.1 60 20 123/56 98 Room Air 05/01/16 12:00 124 05/01/16 10:14 122 05/01/16 08:00 97.9 99 20 114/91 100 Room Air 05/01/16 08:00 106 05/01/16 04:19 97.5 121 20 114/65 95 Room Air 05/01/16 04:00 100 05/01/16 00:05 97.9 108 20 130/68 94 05/01/16 00:00 108 04/30/16 20:15 98.7 114 19 140/81 99 Room Air 04/30/16 20:00 107 04/30/16 17:00 120 04/30/16 16:39 97.9 114 20 105/60 97 Room Air 04/30/16 16:00 107 Intake and Output 04/30/16 05/01/16 19:00 07:00 Intake Total 745 ml 785 ml Output Total 200 ml 900 ml Balance 545 ml -115 ml Intake IV Total 745 ml 785 ml Output Urine Total 200 ml 900 ml # Bowel Movements 1 Laboratory Tests 05/01/16 07:20: Sodium Level 141, Potassium Level 4.7, Chloride Level 105, Carbon Dioxide Level 24, Anion Gap 12, Blood Urea Nitrogen 34H, Creatinine 1.0H, Estimat Glomerular Filtration Rate , Glucose Level 122H, Calcium Level 8.1L Height (Feet): 5 Height (Inches): 1.00 Weight (Pounds): 120 Cardiovascular: normal rate Respiratory/Chest: lungs clear MARIEL PUGA May 01, 2016 14:53
--- NOTE | 2016-05-01 15:05 | Neurology Progress Note ---
Interim History Interim History Interim History Ms. Merida continues to be aphasic and mute. She is unable to follow simple commands. She is still tremulous. She was given her Sinemet but had to be suctioned following that. She continues to be cognitively impoverished and motorically challenged. Review of Systems Neuro Review of Systems Benign. Objective Physical Exam Last Vital Signs Date Time Temp Pulse Resp B/P Pulse Ox O2 Delivery O2 Flow Rate FiO2 05/01/16 12:00 98.1 60 20 123/56 98 Room Air Laboratory Tests Test 05/01/16 07:20 Sodium Level 141 mEQ/L (135-145) Potassium Level 4.7 mEQ/L (3.4-4.9) Chloride Level 105 mEQ/L (98-107) Carbon Dioxide Level 24 mEQ/L (20-30) Anion Gap 12 (5-15) Blood Urea Nitrogen 34 mg/dL (7-23) H Creatinine 1.0 mg/dL (0.5-0.9) H Estimat Glomerular Filtration Rate mL/min (>60) Glucose Level 122 mg/dL (74-106) H Calcium Level 8.1 mg/dL (8.6-10.2) L Neurologic Exam Objective PHYSICAL EXAMINATION: GENERAL: She is a well-developed relatively well-nourished, but lean lady, lying in bed exhibiting a resting tremor involving her upper extremities and jaw. HEAD: Normocephalic and atraumatic. EENT: Examination benign. NECK: No neck rigidity was observed. NEUROLOGICAL EXAMINATION: MENTAL STATUS EXAMINATION: She was awake and looked alert and bright. She was unable to follow simple commands even in Ivorian. Further mental status testing was impossible. SPEECH: Could not be tested. LANGUAGE: She was unable to follow simple commands and unable to communicate in any way. CRANIAL NERVE EXAMINATION: II: She did blink to threat in all garrett. III, IV & : The external ocular movements were full and the pupils 3 mm in diameter equal, round, regular and reactive to light. V & VII: The corneal reflexes were present and equally brisk. VIII: She seemed to be able to hear and had no nystagmus. IX & X: The gag reflex was present and diminished. XI: The sternocleidomastoids and trapezii did function. XII: The tongue was in the midline without any fasciculations or atrophy. MOTOR SYSTEM: The tone was increased in all four extremities with a combination of rigidity and gegenhalten. Examination of muscle mass revealed mild generalized muscle wasting. 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 There was no definite weakness more marked on one side than on the other. SENSORY EXAMINATION: She responded appropriately to deep pain. Other sensory modalities could not be tested. REFLEXES: 1+ and bilaterally symmetrical at the biceps, triceps, brachioradialis , and knees. 0 at both ankles. The plantar responses were flexor bilaterally. COORDINATION, STANCE & GAIT: Could not be tested. Impression/Recommendations Diagnostic Impression 1. Ms. Nikki Merida is an 89-year-old, right-handed, lady, who does have a past history of multiple medical problems including hypertension, atrial fibrillation, an essential tremor, a Parkinsonian tremor and dementia, who was brought to the hospital for tachycardia and some chest pain. When she was evaluated in the hospital was found to have a leukocytosis, a urinary tract infection and renal failure. All these problems have been treated appropriately, but she has been exhibiting worsening tremor. 2. There has been no significant change in her condition as per her nurse. Her tremor is about the same. 3. On neurological examination, at this time, she is awake and alert looking, but is aphasic and unable to follow simple commands to express herself. She is also generally weak and has globally diminished reflexes. She does have a 4-5 Hz tremor involving her upper extremities and jaw, which is more marked at rest than with effort. She also demonstrates rigidity, bradykinesia and hypomania. 4. The patient's history and neurological examination are most compatible with an advanced primary degenerative dementia. 5. She also exhibits signs of a significant parkinsonian syndrome. Recommendations 1. Continue present management. 2. Continue to treat the patient's infectious process and renal failure, as is being done at this point in time. 3. Continue the present medications for essential tremor. 4. Continue Sinemet 25/100 mg q 8 a.m. and 1 p.m. 5. Observe closely. Charley Schmidt M.D., M.S.CHARLEY MEJIA May 01, 2016 15:05
[2016-05-01 16:00] VITALS: BP 170/71
--- NOTE | 2016-05-01 16:10 | Cardiology Report ---
APPROVED REPORT EKG Measurement Heart [id number] Normal sinus rhythm Anterior infarct, age undetermined Abnormal ECG
[2016-05-01] MEDS: Valproic Acid 250mg/5ml Liquid NG SCH (19:00)
[2016-05-01 20:00] VITALS: BP 154/80
[2016-05-01] MEDS: Atorvastatin 20mg tab ORAL SCH (21:00)
[2016-05-01] MEDS: Donepezil 10mg tab ORAL SCH (21:00)
[2016-05-01] MEDS: cefTRIAXone 1 GM in D5W 55 ML IVPB SCH (21:52)
[2016-05-01] MEDS: Heparin 5000 units/ml inj SUBQ SCH (21:55)
[2016-05-02] VITALS: BP 124/91
--- NOTE | 2016-05-02 00:38 | Consultation ---
DATE OF CONSULTATION: 05/01/2016 CHIEF COMPLAINT: Dysphagia. HISTORY OF PRESENT ILLNESS: Most of the history per chart. This is an 89-year-old patient living in [facility], who was brought because of tachycardia and "chest pain." The patient apparently had difficulty swallowing. She failed the swallow evaluation by speech therapist. GI consultation was requested for evaluation of possible PEG placement. PAST MEDICAL HISTORY: 1. Seizure disorder. 2. Hypertension. 3. Hypercholesterolemia. 4. History of chronic kidney disease. 5. Anemia. 6. Osteoarthritis. ALLERGIES: No known drug allergy. MEDICATIONS: Please see medication reconciliation list. FAMILY HISTORY: Noncontributory. REVIEW OF SYSTEMS: Unable to obtain. PHYSICAL EXAMINATION: VITAL SIGNS: Temperature 98.1 degrees, pulse 122, respirations 20, and blood pressure 123/56. HEENT: Normocephalic and atraumatic. Sclerae icterus. NECK: Supple. No lymphadenopathy. CARDIOVASCULAR: Tachy. Regular rate. Plus S1 and S2. LUNGS: Decreased breath sounds bilaterally on supine exam. ABDOMEN: Soft and nontender. No rebound. No guarding. No peritoneal sign. EXTREMITIES: No cyanosis. No clubbing. No edema. LABORATORY DATA: White count is 10.9, hemoglobin 11, hematocrit 33, and platelet count is 264,000. BUN is 34 and creatinine is 1.0. ASSESSMENT: 1. Dysphagia. 2. Anemia. 3. Possible dementia. 4. Macrocytosis. PLAN: 1. Apparently, the son refuses percutaneous endoscopic gastrostomy. According to the nurses, son disagrees with the speech therapy. Before coming to the hospital, the patient apparently was eating at the [facility], so no plan for any percutaneous endoscopic gastrostomy at this time. 2. Anemia, seems to be microcytic, most probably chronic disease. 3. Myelodysplastic syndrome. Plan to check B12, folate, and stool for occult blood. I want to thank, Dr. Azam Abel, for this kind referral. Mohsen Fortune M.D. DR: ALICE JOB#: [id number] CC: Azam Abel M.D.; Fax#: [phone]
[2016-05-02 04:00] VITALS: BP 127/76
[2016-05-02] MEDS: Calcium Carbonate 500mg w/Vit D 200iu tab PO SCH ×2 (05:49→06:30)
[2016-05-02] MEDS: HydrALAZINE 25mg tab ORAL SCH ×4 (05:49→22:00)
[2016-05-02 06:53] LABS: BASOPHILS % (AUTO) 0.7 % (0.0-2.0); LYMPHOCYTES % (AUTO) 19.9 % (20.0-45.0); MEAN CORPUSCULAR HEMOGLOBIN 32.2 PG (27.0-31.0); MEAN CORPUSCULAR HGB CONC 32.6 G/DL (32.0-36.0); MEAN CORPUSCULAR VOLUME 99 FL (80-99); MEAN PLATELET VOLUME 5.6 FL (6.5-10.1); MONOCYTES % (AUTO) 7.7 % (1.0-10.0); NEUTROPHILS % (AUTO) 70.7 % (45.0-75.0); PLATELET COUNT 296 K/UL (150-450); RED BLOOD COUNT 3.24 M/UL (4.20-5.40); RED CELL DISTRIBUTION WIDTH 13.6 % (11.6-14.8)
[2016-05-02 08:00] VITALS: BP 128/70
[2016-05-02] MEDS: Sinemet 25/100 tab ORAL SCH ×2 (08:38→13:00)
[2016-05-02] MEDS: Valproic Acid 250mg/5ml Liquid NG SCH ×3 (08:38→17:46)
[2016-05-02] MEDS: Digoxin 0.5mg/2ml Inj IVP SCH (08:38)
[2016-05-02] MEDS: Heparin 5000 units/ml inj SUBQ SCH ×2 (08:39→22:20)
[2016-05-02] MEDS: Irbesartan 150mg tablet ORAL SCH ×2 (09:00→21:00)
[2016-05-02] MEDS: Amiodarone 200mg tab ORAL SCH (09:00)
[2016-05-02] MEDS: Docusate 100mg cap ORAL SCH ×2 (09:00→17:46)
[2016-05-02] MEDS: Propranolol 10mg tab ORAL SCH ×2 (09:00→21:00)
--- NOTE | 2016-05-02 10:58 | Infectious Diseases Prog Note ---
Assessment/Plan Assessment/Plan A 1. Proteus UTI 2. leucocytosis resolved 3. Parkinson's disease 4. Dementia 5. rectal VRE colonization 6. Dysphagia P 1. continue ceftriaxone 2 more days 2. will follow up cultures Subjective ROS Limited/Unobtainable: Yes Allergies: Coded Allergies: No Known Allergies (Verified , 01/04/08) Objective Vital Signs Last 24 Hour Vital Signs Date Time Temp Pulse Resp B/P Pulse Ox O2 Delivery O2 Flow Rate FiO2 05/02/16 08:38 112 05/02/16 08:00 96.8 52 16 128/70 95 Room Air 68 05/02/16 04:00 97.3 72 20 127/76 94 Room Air 05/02/16 04:00 96 05/02/16 00:00 97.3 104 20 124/91 96 Room Air 05/02/16 00:00 86 05/01/16 20:00 97.0 91 18 154/80 98 Room Air 05/01/16 20:00 100 05/01/16 16:00 113 05/01/16 16:00 97.7 77 18 170/71 91 Room Air 05/01/16 12:00 98.1 60 20 123/56 98 Room Air 05/01/16 12:00 124 Height (Feet): 5 Height (Inches): 1.00 Weight (Pounds): 120 General Appearance: no acute distress HEENT: mucous membranes moist Respiratory/Chest: lungs clear Cardiovascular: tachycardia Abdomen: soft, non tender Extremities: no edema, other - B/L SCD of legs Neurologic/Psychiatric: aphasia, other - awake, has tremor Laboratory Tests Test 05/02/16 05:20 05/02/16 05:26 White Blood Count 8.0 K/UL (4.8-10.8) Red Blood Count 3.24 M/UL (4.20-5.40) L Hemoglobin 10.4 G/DL (12.0-16.0) L Hematocrit 32.1 % (37.0-47.0) L Mean Corpuscular Volume 99 FL (80-99) Mean Corpuscular Hemoglobin 32.2 PG (27.0-31.0) H Mean Corpuscular Hemoglobin Concent 32.6 G/DL (32.0-36.0) Red Cell Distribution Width 13.6 % (11.6-14.8) Platelet Count 296 K/UL (150-450) Mean Platelet Volume 5.6 FL (6.5-10.1) L Neutrophils (%) (Auto) 70.7 % (45.0-75.0) Lymphocytes (%) (Auto) 19.9 % (20.0-45.0) L Monocytes (%) (Auto) 7.7 % (1.0-10.0) Eosinophils (%) (Auto) 1.0 % (0.0-3.0) Basophils (%) (Auto) 0.7 % (0.0-2.0) Vitamin B12 Level 975 pg/mL (211-946) H Folate Pending Stool Occult Blood Pending Current Medications Medications (Trade) Dose Ordered Sig/Andi Route PRN Reason Start Time Stop Time Status Last Admin Dose Admin Amiodarone HCl (Cordarone) 200 mg DAILY ORAL 04/29/16 09:00 05/29/16 08:59 Atorvastatin Calcium (Lipitor) 20 mg BEDTIME ORAL 04/29/16 21:00 05/29/16 20:59 Bisacodyl (Dulcolax) 10 mg DAILYPRN PRN RECTAL Constipation 04/29/16 00:45 05/29/16 00:44 Calcium Carbonate (OsCal D) 1 tab ACBREAKFAST PO 04/29/16 09:00 05/29/16 08:59 Carbidopa/Levodopa (Sinemet 25/100) 1 ea BID@0800,1300 ORAL 05/01/16 08:00 05/31/16 07:59 05/02/16 08:38 Ceftriaxone Sodium 1 gm/ Dextrose 55 ml @ 110 mls/hr Q24H IVPB 04/29/16 21:00 05/06/16 20:59 05/01/16 21:52 Dextrose (D5W 1000ml) 1,000 ml @ 75 mls/hr [id number] IV 04/30/16 14:30 05/30/16 14:29 05/02/16 03:33 Digoxin (Lanoxin) 0.125 mg DAILY IVP 05/01/16 09:00 05/31/16 08:59 05/02/16 08:38 Docusate Sodium (Colace) 100 mg TWICE A DAY ORAL 04/29/16 09:00 05/29/16 08:59 Donepezil HCl (Aricept) 10 mg QHS ORAL 04/29/16 21:00 05/29/16 20:59 Folic Acid (Folate) 1 mg DAILY ORAL 04/29/16 09:00 05/29/16 08:59 Heparin Sodium (Porcine) (Heparin 5000 units/ml) 5,000 units EVERY 12 HOURS SUBQ 05/01/16 21:00 05/31/16 20:59 05/02/16 08:39 Hydralazine HCl (Apresoline) 25 mg TID@0600,1400,2200 ORAL 04/29/16 06:00 05/29/16 05:59 Irbesartan (Avapro) 150 mg BID@0900,2100 ORAL 04/29/16 09:00 05/29/16 08:59 Lorazepam (Ativan) 0.5 mg Q6H PRN ORAL For Anxiety 04/29/16 00:45 05/06/16 00:44 Magnesium Hydroxide 30 ml 30 ml DAILYPRN PRN ORAL Constipation 04/29/16 00:45 05/29/16 00:44 Primidone (Mysoline) 50 mg QHS ORAL 04/29/16 21:00 05/29/16 20:59 Propranolol HCl (Inderal) 30 mg Q12HR ORAL 04/29/16 09:00 05/29/16 08:59 Valproic Acid (Depakene) 250 mg TID NG 05/01/16 18:15 05/31/16 18:14 05/02/16 08:38 TIYN PUGA May 02, 2016 10:58
[2016-05-02 12:00] VITALS: BP 124/76
[2016-05-02] MEDS ORDERED: Diltiazem 50mg/10ml Inj IV PRN (12:45)
--- NOTE | 2016-05-02 13:11 | Neurology Progress Note ---
Interim History Interim History Interim History Ms. 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 She is unable to follow simple commands. She is minimally less tremulous. She continues to be cognitively impoverished and motorically challenged. She is malnourished and is not eating much. As per her nurse she not taking her medicines. Review of Systems Neuro Review of Systems Unable to obtain. Objective Physical Exam Last Vital Signs Date Time Temp Pulse Resp B/P Pulse Ox O2 Delivery O2 Flow Rate FiO2 05/02/16 08:38 112 05/02/16 08:00 96.8 16 128/70 95 Room Air Laboratory Tests Test 05/02/16 05:20 05/02/16 05:26 White Blood Count 8.0 K/UL (4.8-10.8) Red Blood Count 3.24 M/UL (4.20-5.40) L Hemoglobin 10.4 G/DL (12.0-16.0) L Hematocrit 32.1 % (37.0-47.0) L Mean Corpuscular Volume 99 FL (80-99) Mean Corpuscular Hemoglobin 32.2 PG (27.0-31.0) H Mean Corpuscular Hemoglobin Concent 32.6 G/DL (32.0-36.0) Red Cell Distribution Width 13.6 % (11.6-14.8) Platelet Count 296 K/UL (150-450) Mean Platelet Volume 5.6 FL (6.5-10.1) L Neutrophils (%) (Auto) 70.7 % (45.0-75.0) Lymphocytes (%) (Auto) 19.9 % (20.0-45.0) L Monocytes (%) (Auto) 7.7 % (1.0-10.0) Eosinophils (%) (Auto) 1.0 % (0.0-3.0) Basophils (%) (Auto) 0.7 % (0.0-2.0) Vitamin B12 Level 975 pg/mL (211-946) H Folate Pending Stool Occult Blood Pending Neurologic Exam Objective PHYSICAL EXAMINATION: GENERAL: She is a well-developed relatively well-nourished, but lean lady, lying in bed exhibiting a resting tremor involving her upper extremities and jaw. HEAD: Normocephalic and atraumatic. EENT: Examination benign. NECK: No neck rigidity was observed. NEUROLOGICAL EXAMINATION: MENTAL STATUS EXAMINATION: She was awake and looked alert and bright. She was unable to follow simple commands even in [place]. Further mental status testing was impossible. SPEECH: Could not be tested. LANGUAGE: She was unable to follow simple commands and unable to communicate in any way. CRANIAL NERVE EXAMINATION: II: She did blink to threat in all garrett. III, IV & : The external ocular movements were full and the pupils 3 mm in diameter equal, round, regular and reactive to light. V & VII: The corneal reflexes were present and equally brisk. VIII: She seemed to be able to hear and had no nystagmus. IX & X: The gag reflex was present and diminished. XI: The sternocleidomastoids and trapezii did function. XII: The tongue was in the midline without any fasciculations or atrophy. MOTOR SYSTEM: The tone was increased in all four extremities with a combination of rigidity and gegenhalten. Examination of muscle mass revealed mild generalized muscle wasting. 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 There was no definite weakness more marked on one side than on the other. SENSORY EXAMINATION: She responded appropriately to deep pain. Other sensory modalities could not be tested. REFLEXES: 1+ and bilaterally symmetrical at the biceps, triceps, brachioradialis , and knees. 0 at both ankles. The plantar responses were flexor bilaterally. COORDINATION, STANCE & GAIT: Could not be tested. Impression/Recommendations Diagnostic Impression 1. Ms. Nikki Merida is an 89-year-old, right-handed, lady, who does have a past history of multiple medical problems including hypertension, atrial fibrillation, an essential tremor, a Parkinsonian tremor and dementia, who was brought to the hospital for tachycardia and some chest pain. When she was evaluated in the hospital was found to have a leukocytosis, a urinary tract infection and renal failure. All these problems have been treated appropriately, but she has been exhibiting worsening tremor. 2. There has been no significant change in her condition as per her nurse. Her tremor is minimally better. 3. On neurological examination, at this time, she is awake and alert looking, but is aphasic and unable to follow simple commands or express herself. She is also generally weak and has globally diminished reflexes. She does have a 4-5 Hz tremor involving her upper extremities and jaw, which is more marked at rest than with effort. She also demonstrates rigidity, bradykinesia and hypomimia. 4. The patient's history and neurological examination are most compatible with an advanced primary degenerative dementia. 5. She also exhibits signs of a significant parkinsonian syndrome. Recommendations 1. Continue present management. 2. Continue to treat the patient's infectious process and renal failure, as is being done at this point in time. 3. Continue the present medications for essential tremor. 4. Continue Sinemet 25/100 mg q 8 a.m. and 1 p.m. 5. Observe closely. Charley Schmidt M.D., M.S.P.Shira. CHARLEY SCHMIDT May 02, 2016 13:11
[2016-05-02] MEDS ORDERED: Diltiazem 25mg/5ml IV PRN (13:15)
--- NOTE | 2016-05-02 13:15 | General Progress Note ---
Assessment/Plan Problem List: (1) ARF (acute renal failure) ICD Codes: N17.9 - Acute kidney failure, unspecified SNOMED: 40827381 Qualifiers: Qualified Codes: N17.9 - Acute kidney failure, unspecified (2) Hyperkalemia, diminished renal excretion ICD Codes: E87.5 - Hyperkalemia SNOMED: 89483016 (3) UTI (urinary tract infection) ICD Codes: N39.0 - Urinary tract infection, site not specified SNOMED: 09112846 Qualifiers: Qualified Codes: N39.0 - Urinary tract infection, site not specified (4) Toxic metabolic encephalopathy ICD Codes: G92 - Toxic encephalopathy SNOMED: 318657776 (5) HTN (hypertension) ICD Codes: I10 - Essential (primary) hypertension SNOMED: 48572701 (6) Hypernatremia ICD Codes: E87.0 - Hyperosmolality and hypernatremia SNOMED: 34748941 Assessment/Plan IVF IV ABXS Discussed with son No Gt per son follow labs Discussed with Dr Schmidt Subjective Allergies: Coded Allergies: No Known Allergies (Verified , 01/04/08) Subjective awake with involuntary movements Objective Last 24 Hour Vital Signs Date Time Temp Pulse Resp B/P Pulse Ox O2 Delivery O2 Flow Rate FiO2 05/02/16 08:38 112 05/02/16 08:00 102 05/02/16 08:00 96.8 52 16 128/70 95 Room Air 68 05/02/16 04:00 97.3 72 20 127/76 94 Room Air 05/02/16 04:00 96 05/02/16 00:00 97.3 104 20 124/91 96 Room Air 05/02/16 00:00 86 05/01/16 20:00 97.0 91 18 154/80 98 Room Air 05/01/16 20:00 100 05/01/16 16:00 113 05/01/16 16:00 97.7 77 18 170/71 91 Room Air Intake and Output 05/01/16 05/02/16 19:00 07:00 Intake Total 453 ml 884 ml Output Total 450 ml Balance 3 ml 884 ml Intake IV Total 453 ml 884 ml Output Urine Total 450 ml # Voids 2 Laboratory Tests 05/02/16 05:20: White Blood Count 8.0, Red Blood Count 3.24L, Hemoglobin 10.4L, Hematocrit 32.1L , Mean Corpuscular Volume 99, Mean Corpuscular Hemoglobin 32.2H, Mean Corpuscular Hemoglobin Concent 32.6, Red Cell Distribution Width 13.6, Platelet Count 296, Mean Platelet Volume 5.6L, Neutrophils (%) (Auto) 70.7, Lymphocytes ( %) (Auto) 19.9L, Monocytes (%) (Auto) 7.7, Eosinophils (%) (Auto) 1.0, Basophils (%) (Auto) 0.7, Vitamin B12 Level 975H, Folate [Pending] 05/02/16 05:26: Stool Occult Blood [Pending] Height (Feet): 5 Height (Inches): 1.00 Weight (Pounds): 120 Cardiovascular: normal rate Respiratory/Chest: lungs clear MARIEL PUGA May 02, 2016 13:15
[2016-05-02 16:00] VITALS: BP 159/87
--- NOTE | 2016-05-02 16:31 | Cardiology Report ---
APPROVED REPORT EKG Measurement Heart [id number] Atrial flutter with variable AV block Nonspecific ST and T wave abnormality Abnormal ECG
[2016-05-02 20:00] VITALS: BP 103/64
[2016-05-02] MEDS: Atorvastatin 20mg tab ORAL SCH (21:00)
[2016-05-02] MEDS: Donepezil 10mg tab ORAL SCH (21:00)
[2016-05-02] MEDS: cefTRIAXone 1 GM in D5W 55 ML IVPB SCH (22:19)
[2016-05-03] VITALS: BP 156/97
[2016-05-03 04:00] VITALS: BP 149/96
[2016-05-03] MEDS: HydrALAZINE 25mg tab ORAL SCH ×3 (06:00→13:29)
[2016-05-03] MEDS: Calcium Carbonate 500mg w/Vit D 200iu tab PO SCH ×2 (06:30→06:32)
[2016-05-03 08:01] VITALS: BP 116/67
[2016-05-03] MEDS: Valproic Acid 250mg/5ml Liquid NG SCH ×2 (09:35→13:29)
[2016-05-03] MEDS: Sinemet 25/100 tab ORAL SCH ×2 (09:35→13:28)
[2016-05-03] MEDS: Irbesartan 150mg tablet ORAL SCH (09:36)
[2016-05-03] MEDS: Docusate 100mg cap ORAL SCH (09:36)
[2016-05-03] MEDS: Propranolol 10mg tab ORAL SCH (09:36)
[2016-05-03] MEDS: Amiodarone 200mg tab ORAL SCH (09:37)
[2016-05-03] MEDS: Heparin 5000 units/ml inj SUBQ SCH (09:40)
[2016-05-03] MEDS: Digoxin 0.5mg/2ml Inj IVP SCH (09:41)
--- NOTE | 2016-05-03 09:55 | General Progress Note ---
Assessment/Plan Assessment/Plan Assessment - OBS - poor po intake - HTN - Anemia - functional decline, immobility, malnutrition - decub risk Recommendations - No PEG per son instruction - push po - elevate HOB - d/c planning Subjective Allergies: Coded Allergies: No Known Allergies (Verified , 01/04/08) Subjective above noted suboptimal PO intake - about 25% confused discussed with son - declines PEG believes she will eat more at SNF with assistance accepts risks of malnutrition and decubitus ulceration Objective Last 24 Hour Vital Signs Date Time Temp Pulse Resp B/P Pulse Ox O2 Delivery O2 Flow Rate FiO2 05/03/16 09:41 113 05/03/16 09:36 116/67 05/03/16 09:36 113 116/67 05/03/16 08:01 97.7 113 20 116/67 95 Room Air 05/03/16 08:00 110 05/03/16 04:00 97.2 102 20 149/96 97 Room Air 05/03/16 04:00 110 05/03/16 00:00 103 05/03/16 00:00 97.2 95 18 156/97 95 Room Air 05/02/16 20:00 97.7 74 18 103/64 93 Room Air 05/02/16 20:00 99 05/02/16 16:00 102 05/02/16 16:00 97.7 81 18 159/87 94 Room Air 05/02/16 13:19 124 121/76 05/02/16 12:00 125 05/02/16 12:00 96.9 59 17 124/76 96 Room Air 62 Intake and Output 05/02/16 05/03/16 19:00 07:00 Intake Total 870 ml 225 ml Output Total 425 ml 400 ml Balance 445 ml -175 ml Intake Oral 120 ml IV Total 750 ml 225 ml Output Urine Total 425 ml 400 ml # Bowel Movements 1 Height (Feet): 5 Height (Inches): 1.00 Weight (Pounds): 120 Objective confused NCAT supple CTA RRR Soft ND NT no edema (+) tremor, confused CHEKO JIMENEZ May 03, 2016 09:55
--- NOTE | 2016-05-03 10:52 | Infectious Diseases Prog Note ---
Assessment/Plan Assessment/Plan antibiotics : ceftriaxone A 1. proteus UTI 2. leucocytosis resolved 3. Parkinsons disease 4. dementia 5. rectal VRE colonization P 1. continue ceftriaxone 1 more day 2. will follow up cultures Subjective ROS Limited/Unobtainable: Yes Allergies: Coded Allergies: No Known Allergies (Verified , 01/04/08) Objective Vital Signs Last 24 Hour Vital Signs Date Time Temp Pulse Resp B/P Pulse Ox O2 Delivery O2 Flow Rate FiO2 05/03/16 09:41 113 05/03/16 09:36 116/67 05/03/16 09:36 113 116/67 05/03/16 08:01 97.7 113 20 116/67 95 Room Air 05/03/16 08:00 110 05/03/16 04:00 97.2 102 20 149/96 97 Room Air 05/03/16 04:00 110 05/03/16 00:00 103 05/03/16 00:00 97.2 95 18 156/97 95 Room Air 05/02/16 20:00 97.7 74 18 103/64 93 Room Air 05/02/16 20:00 99 05/02/16 16:00 102 05/02/16 16:00 97.7 81 18 159/87 94 Room Air 05/02/16 13:19 124 121/76 05/02/16 12:00 125 05/02/16 12:00 96.9 59 17 124/76 96 Room Air 62 Height (Feet): 5 Height (Inches): 1.00 Weight (Pounds): 120 Respiratory/Chest: lungs clear Cardiovascular: normal rate, regular rhythm, no gallop/murmur Abdomen: soft, non tender Extremities: no edema, other - right arm PICC CAROLE JAIN May 03, 2016 10:52
--- NOTE | 2016-05-03 11:28 | Progress Note ---
DATE: 05/02/2016 SUBJECTIVE: The patient remains confused and with a tremor. Her oral intake remains poor. Her sons instructions, I will reevaluate the nutritional status on Tuesday morning. OBJECTIVE: GENERAL: The elderly woman, who is confused and unresponsive, but awake. HEENT: Normocephalic and atraumatic. The oropharynx could not be evaluated. NECK: Neck appeared supple. CHEST: Exam reveals coarse breath sounds. CARDIOVASCULAR: Showed regular rate and rhythm. ABDOMEN: Soft with good bowel sounds. EXTREMITIES: Revealed no edema, but the patient with upper extremity tremor. NEUROLOGIC: Notable for confusion. LABORATORY DATA: Reviewed. ASSESSMENT: 1. Poor oral intake. 2. Organic brain syndrome. 3. Hypertension. 4. Tremor . 5. Continuing to evaluate the patient's oral intake over the weekend. RECOMMENDATIONS: 1. Monitor oral intake. 2. Push and encourage conception of meals. 3. We discussed with tomorrow morning regarding long-term feeding options. Latosha Mercado M.D. DR: Ayanna JOB#: [id number] CC:
[2016-05-03 11:38] VITALS: BP 124/89
--- NOTE | 2016-05-03 13:07 | Neurology Progress Note ---
Interim History Interim History Interim History Ms. Merida continues to be aphasic and mute. She is unable to follow simple commands. She is minimally less tremulous. She continues to be cognitively impoverished and motorically challenged. She is malnourished and is not eating much. As per her nurse she is taking her medicines inconsistently. Review of Systems Neuro Review of Systems Unable to obtain. Objective Physical Exam Last Vital Signs Date Time Temp Pulse Resp B/P Pulse Ox O2 Delivery O2 Flow Rate FiO2 05/03/16 11:38 97.5 86 20 124/89 96 Room Air Neurologic Exam Objective PHYSICAL EXAMINATION: GENERAL: She is a well-developed relatively well-nourished, but lean lady, lying in bed in no acute distress. HEAD: Normocephalic and atraumatic. EENT: Examination benign. NECK: No neck rigidity was observed. NEUROLOGICAL EXAMINATION: MENTAL STATUS EXAMINATION: She was awake and looked alert and bright. She was unable to follow simple commands even in [place]. Further mental status testing was impossible. SPEECH: Could not be tested. LANGUAGE: She was unable to follow simple commands and unable to communicate in any way. CRANIAL NERVE EXAMINATION: II: She did blink to threat in all garrett. III, IV & : The external ocular movements were full and the pupils 3 mm in diameter equal, round, regular and reactive to light. V & VII: The corneal reflexes were present and equally brisk. VIII: She seemed to be able to hear and had no nystagmus. IX & X: The gag reflex was present and diminished. XI: The sternocleidomastoids and trapezii did function. XII: The tongue was in the midline without any fasciculations or atrophy. MOTOR SYSTEM: The tone was increased in all four extremities with a combination of rigidity and gegenhalten. Examination of muscle mass revealed mild generalized muscle wasting. 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 There was no definite weakness more marked on one side than on the other. SENSORY EXAMINATION: She responded appropriately to deep pain. Other sensory modalities could not be tested. REFLEXES: 1+ and bilaterally symmetrical at the biceps, triceps, brachioradialis , and knees. 0 at both ankles. The plantar responses were flexor bilaterally. COORDINATION, STANCE & GAIT: Could not be tested. ABNORMAL MOVEMENTS: Combination of essential and parkinsonian tremor - G 2/4 Rigidity G 2/4 [place] G 3/4 Impression/Recommendations Diagnostic Impression 1. Ms. Nikki Merida is an 89-year-old, right-handed, lady, who does have a past history of multiple medical problems including hypertension, atrial fibrillation, an essential tremor, a Parkinsonian tremor and dementia, who was brought to the hospital for tachycardia and some chest pain. When she was evaluated in the hospital was found to have a leukocytosis, a urinary tract infection and renal failure. All these problems have been treated appropriately , but she has been exhibiting worsening tremor. 2. There has been no significant change in her condition as per her nurse. Her tremor is minimally better. 3. On neurological examination, at this time, she is awake and alert looking, but is aphasic and unable to follow simple commands or express herself. She is also generally weak and has globally diminished reflexes. She does have a 4-5 Hz tremor involving her upper extremities and jaw, which is better both at rest and with effort. She also demonstrates rigidity, bradykinesia and hypomimia. 4. The patient's history and neurological examination are most compatible with an advanced primary degenerative dementia. 5. She also exhibits signs of a significant parkinsonian syndrome and an essential tremor. Recommendations 1. Continue present management. 2. Continue to treat the patient's infectious process and renal failure, as is being done at this point in time. 3. Continue the present medications for essential tremor. 4. Continue Sinemet 25/100 mg q 8 a.m. and 1 p.m. 5. Improve nutritional status. 6. Observe closely. Charley Schmidt M.D., M.S.P.CHARLEY PEREZ May 03, 2016 13:07
[2016-05-03] MEDS ORDERED: PACERONE200 MG ORAL (13:14)
[2016-05-03] MEDS ORDERED: LIPITOR20 MG ORAL (13:14)
[2016-05-03] MEDS ORDERED: SINEMET 25/1001 EA ORAL (13:14)
--- NOTE | 2016-05-03 13:20 | Consultation ---
Consult Note Assessment/Plan Dc dictated #[id number] MARIEL PUGA May 03, 2016 13:20
[2016-05-03 16:00] VITALS: BP 114/67
--- NOTE | 2016-05-04 01:59 | Discharge Summary ---
DATE OF ADMISSION: 04/28/2016 DATE OF DISCHARGE: 05/03/2016 CHIEF COMPLAINT: The patient was brought in for diagnosis of atrial fibrillation and chest pain. HISTORY OF PRESENT ILLNESS: This is an 89-year-old, Spanish female with history of advanced dementia, was unable to provide any history. History was obtained from the chart. The patient was admitted to telemetry. She was found to have also significant leukocytosis, urinary tract infection, change in mental status, lethargy, prerenal azotemia, and acute renal failure. HOSPITAL COURSE: The patient was given IV antibiotics and IV fluids. Speech pathology consultation was obtained. The patient was found to be at risk of aspiration, also her by mouth intake was low. I asked Dr. Mercado for the G tube, however, the patient's son refused to consent and said that the patient was eating before and want a hold off on the tube feeding. The patient also has atrial fibrillation for which she was seen by Dr. Null. The problem was she was not taking oral medications, so she was given IV digoxin and she was also on amiodarone. She remained stable during her hospital course and finally [facility]. DISCHARGE DIAGNOSES: 1. Atrial fibrillation with rapid ventricular response. 2. Urinary tract infection. 3. Sepsis. 4. Acute renal failure as result of prerenal azotemia. 5. Aspiration risk. 6. Poor p.o. intake and malnutrition, moderate. Azam Abel M.D. DR: TAMRA JOB#: [id number] CC:
--- NOTE | 2016-05-18 14:19 | Cardiology Report ---
APPROVED REPORT EXAM: Two-dimensional and M-mode echocardiogram with Doppler and color Doppler. INDICATION Atrial Fibrillation M-Mode DIMENSIONS IVSd0.5 (0.7-1.1cm)Left Atrium (MM)3.7 (1.6-4.0cm) LVDd3.9 (3.5-5.6cm)Aortic Root2.7 (2.0-3.7cm) PWd0.7 (0.7-1.1cm)Aortic Cusp Exc.1.5 (1.5-2.0cm) LVDs2.2 (2.5-4.0cm) PWs0.7 cm Normal left ventricular chamber size, systolic function and wall motion. Left ventricular ejection fraction estimated to be 60-65 %. Moderate left ventricular hypertrophy. Moderate pericardial effusion. Right cardiac chamber sizes are within normal limits. Calcified aortic valve sclerosis with adequate cusp excursion. Focal aortic valve sclerosis with adequate cusp excursion Mildly thickened mitral valve leaflets with normal excursion. Moderate mitral annulus and aortic root calcification. Pulmonic valve is well visualized. Normal tricuspid valve structure. IVC is normal in size with physiologic collapse. A color flow and spectral Doppler study was performed and revealed: Mild aortic regurgitation. Likely a component to LVOT dynamic obstruction mild to moderate mitral regurgitation. Left ventricular diastolic dysfunction not obtainable due to arrhythmia. Trace tricuspid regurgitation. Tricuspid systolic velocities suggests peak right ventricular systolic pressure of 32 mmHg
== END 2016-05-03 19:00 | DRG 871 ==
LOC: EDBD 19:07 → EMR 19:40 → 2E 20:27 → EDBEDREQ 22:42 → 2E 04-29 10:00
DX: A41.9 Sepsis, unspecified organism (principal); G92 Toxic encephalopathy; L89.154 Pressure ulcer of sacral region, stage 4; N17.9 Acute kidney failure, unspecified; E46 Unspecified protein-calorie malnutrition; G20 Parkinson's disease; E87.5 Hyperkalemia; N39.0 Urinary tract infection, site not specified; I50.9 Heart failure, unspecified; R13.10 Dysphagia, unspecified; R47.01 Aphasia; I48.91 Unspecified atrial fibrillation; Z79.01 Long term (current) use of anticoagulants; I12.9 Hypertensive chronic kidney disease with stage 1 through stage 4 chronic kidney disease, or unspecified chronic kidney disease; N18.9 Chronic kidney disease, unspecified; F02.80 Dementia in other diseases classified elsewhere, unspecified severity, without behavioral disturbance, psychotic disturbance, mood disturbance, and anxiety; B96.4 Proteus (mirabilis) (morganii) as the cause of diseases classified elsewhere; Z23 Encounter for immunization
CPT/HCPCS: 36415; 71010; 80048; 80053; 80061; 81003; 82270; 82550; 82553; 82607; 82746; 83036; 83540; 83550; 83605; 83735; 83880; 84100; 84484; 85025; 87040; 87081; 87086; 87181; 93005; 93306